=== PATIENT | female | born 2000 | race Two or more races ===

== ENCOUNTER 2022-03-11 11:40 | Outpatient (CLI) | payer OTHER ==
--- NOTE | 2022-03-11 15:05 | XRAY Report ---
PROCEDURE: Shoulder 2 View LT INDICATIONS: SHOULDER PX TECHNIQUE: 2 views of the shoulder were acquired. COMPARISON: None. FINDINGS: Bones: No acute fractures or dislocations. No suspicious bony lesions. Visualized ribs appear inta ct. Soft tissues: No suspicious soft tissue calcifications. IMPRESSION: No acute osseous abnormality. If symptoms persist or there is continued clinical concern , further evaluation with MRI or CT may be helpful. Reviewed by: Shen Fair MD on 03/11/2022 3:03 PM [facility] Approved by: Shen Fair MD on 03/11/2022 3:03 PM [facility] Station ID: [id number]
== END 2022-03-11 11:41 | disposition home or self-care (01) ==
LOC: DI 11:40
PROVIDERS: ATTEND Physician Assistant
DX: M25.512 Pain in left shoulder (principal)